=== PATIENT | female | born 1970 | race Caucasian/White ===

== ENCOUNTER 2017-11-16 09:14 | Emergency (ER) | payer OTHER ==
[~2017-11-16] VITALS: Ht 172.7 cm; Wt 76.7 kg
[2017-11-16 09:41] LABS: HEMATOCRIT 42.8 % (36.0-46.0); HEMOGLOBIN 14.4 G/DL (11.9-15.5); MCH 30.5 PG (29.0-34.0); MCHC 33.6 G/DL (30.0-36.0); MCV 90.7 FL (83-99); PLATELET COUNT 248 K/uL (156-360); RBC DIS.WIDTH-CV 13.2 % (11.8-14.6); RBC DIS.WIDTH-SD 44.2 % (39-53); RED BLOOD COUNT 4.72 M/uL (3.80-5.20); WHITE BLOOD COUNT 5.5 K/uL (4.1-10.2)
[2017-11-16 09:52] LABS: CHLORIDE 110 mEq/L (99-109); SODIUM 142 mEq/L (136-147)
[2017-11-16 09:54] LABS: GLUCOSE 90 mg/dL (70-99)
[2017-11-16 09:57] LABS: CREATININE 0.7 mg/dL (0.6-1.3); GFR ESTIMATE (CALCULATED) > 59 mL/min/
[2017-11-16 09:58] LABS: UREA NITROGEN (BUN) 12 mg/dL (9-23)
[2017-11-16 10:02] LABS: TROP-I INTERPRETATION NEGATIVE; TROPONIN-I < 0.01 ng/mL (0.0-0.30)
[2017-11-16 10:10] LABS: D-DIMER ELISA < 150.00 ng/mLDDU (<230)
[2017-11-16 10:26] LABS: QUANTITATIVE HCG < 4.0 MIU/ML
[2017-11-16 12:01] LABS: TROP-I INTERPRETATION NEGATIVE; TROPONIN-I < 0.01 ng/mL (0.0-0.30)
[2017-11-16] MEDS ORDERED: PROVENTIL HFA6.7 GM IH (12:46)
[2017-11-16 13:53] VITALS: BP 120/66
== END 2017-11-16 13:54 | disposition home or self-care (01) ==
LOC: EME 09:14
PROVIDERS: Emergency Medicine
DX: R07.81 Pleurodynia (principal); J98.01 Acute bronchospasm; R42 Dizziness and giddiness
CPT/HCPCS: 71046; 80048; 84484; 84702; 85027; 85379; 93005; 94640; 99281; 99285; J1885; J7030

== ENCOUNTER 2017-11-21 23:19 | Observation (INO) | payer OTHER ==
[~2017-11-21] VITALS: Ht 172.7 cm; Wt 77.8 kg
[~2017-11-21 23:19] MED LIST: PROVENTIL HFA6.7 GM IH
[2017-11-21 23:56] LABS: CHLORIDE 105 mEq/L (99-109); POTASSIUM 4.1 mEq/L (3.7-5.4); SODIUM 140 mEq/L (136-147)
[2017-11-21 23:57] LABS: HEMATOCRIT 43.2 % (36.0-46.0); HEMOGLOBIN 14.6 G/DL (11.9-15.5); MCH 29.9 PG (29.0-34.0); MCHC 33.8 G/DL (30.0-36.0); MCV 88.5 FL (83-99); PLATELET COUNT 283 K/uL (156-360); RBC DIS.WIDTH-SD 42.5 % (39-53); RED BLOOD COUNT 4.88 M/uL (3.80-5.20); WHITE BLOOD COUNT 8.6 K/uL (4.1-10.2)
[2017-11-21 23:57] LABS: GLUCOSE 136 mg/dL (70-99)
[2017-11-22 00:01] LABS: CREATININE 0.8 mg/dL (0.6-1.3); GFR ESTIMATE (CALCULATED) > 59 mL/min/
[2017-11-22 00:01] LABS: APPEARANCE CLEAR ((CLEAR)); BILIRUBIN NEGATIVE; BLOOD NEGATIVE; COLOR YELLOW ((YELLOW)); GLUCOSE (STRIP) NEGATIVE; KETONES NEGATIVE; LEUKOCYTES NEGATIVE; NITRITE NEGATIVE; PROTEIN (STRIP) NEGATIVE; SPECIFIC GRAVITY 1.011 (1.000-1.030); UCUL ADDED? NO; UROBILINOGEN 0.2 MG/DL (0.2-1.0)
[2017-11-22 00:02] LABS: UREA NITROGEN (BUN) 12 mg/dL (9-23)
[2017-11-22 00:09] LABS: QUANTITATIVE HCG < 4.0 MIU/ML
[2017-11-22 00:10] LABS: TROP-I INTERPRETATION NEGATIVE; TROPONIN-I < 0.01 ng/mL (0.0-0.30)
[2017-11-22 03:35] VITALS: BP 122/58
[2017-11-22 05:55] LABS: HEMATOCRIT 38.1 % (36.0-46.0); HEMOGLOBIN 12.7 G/DL (11.9-15.5); MCH 29.3 PG (29.0-34.0); MCHC 33.3 G/DL (30.0-36.0); PLATELET COUNT 225 K/uL (156-360); RBC DIS.WIDTH-CV 12.9 % (11.8-14.6); RBC DIS.WIDTH-SD 41.9 % (39-53); RED BLOOD COUNT 4.33 M/uL (3.80-5.20); WHITE BLOOD COUNT 7.4 K/uL (4.1-10.2)
[2017-11-22 06:09] LABS: TROP-I INTERPRETATION NEGATIVE; TROPONIN-I < 0.01 ng/mL (0.0-0.30)
[2017-11-22 07:00] VITALS: BP 117/57
[2017-11-22 07:54] LABS: ALKALINE PHOSPHATASE 37 IU/L (3-129); ALT (GPT) 9 IU/L (3-49); AST (GOT) 12 IU/L (2-34); CHLORIDE 107 MEQ/L (99-109); CREATININE 0.6 MG/DL (0.6-1.3); GFR ESTIMATE (CALCULATED) > 59 mL/min/; GLUCOSE 125 mg/dL (70-99); POTASSIUM 4.4 MEQ/L (3.7-5.4); SODIUM 138 MEQ/L (136-147); TOTAL BILIRUBIN 0.5 MG/DL (0.0-1.0); TOTAL PROTEIN 6.1 G/DL (6.4-8.3); UREA NITROGEN (BUN) 9 mg/dL (9-23)
[2017-11-22 10:23] LABS: THYROTROPIN (TSH) 0.71 MIU/L (0.4-5.5)
[2017-11-22 11:42] VITALS: BP 115/60
[2017-11-22 12:30] LABS: BENZODIAZEPINES, URINE SCREEN Negative (200 ng/mL)
[2017-11-22] MEDS ORDERED: DELTASONE20 M1 PO (12:41)
[2017-11-22] MEDS ORDERED: HAIR-SKIN-NAIL1 EACH PO (12:41)
[2017-11-22] MEDS ORDERED: VITAMIN C W/AC500 M1 PO (12:41)
[2017-11-22 12:57] LABS: TROP-I INTERPRETATION NEGATIVE; TROPONIN-I < 0.01 ng/mL (0.0-0.30)
[2017-11-22] MEDS ORDERED: ASPIR-LOW81 MG PO (14:43)
[2017-11-22] MEDS ORDERED: ALPRAZOLAM0.25 M2 PO (14:45)
[2017-11-22 15:25] VITALS: BP 109/57
[2017-11-23 08:07] LABS: HEMOGLOBIN A1c (GLYCOHEMOGLOB) 4.8 % (Below 5.7)
[2017-11-23 09:47] LABS: LYME DISEASE SEROLOGY SCREEN NEGATIVE (NEGATIVE)
== END 2017-11-22 15:56 | disposition home or self-care (01) ==
LOC: EME 23:19 → EDOF 11-22 02:24 → ENRESERV 11-22 02:28 → 5WEST 11-22 03:31
PROVIDERS: Internal Medicine
DX: R07.9 Chest pain, unspecified (principal); Q21.1 Atrial septal defect; I48.0 Paroxysmal atrial fibrillation; R06.09 Other forms of dyspnea; R00.2 Palpitations; Z86.73 Personal history of transient ischemic attack (TIA), and cerebral infarction without residual deficits; M79.1 Myalgia; R53.1 Weakness; I73.00 Raynaud's syndrome without gangrene; F41.9 Anxiety disorder, unspecified; R73.9 Hyperglycemia, unspecified; Z79.82 Long term (current) use of aspirin; Z88.1 Allergy status to other antibiotic agents; Z88.2 Allergy status to sulfonamides
CPT/HCPCS: 71046; 71275; 80048; 80053; 80306 90; 81003; 83036; 84443; 84484; 84702; 85027; 86038; 86430; 86618; 93005; 99281; 99285; G0378; J1644; J2060; J7030